=== PATIENT | female | born 1985 | race Caucasian/White ===

== ENCOUNTER 2017-02-07 18:28 | Emergency (ER) | payer OTHER ==
[~2017-02-07 18:28] MED LIST: CLX20 PO
[2017-02-07 18:31] VITALS: TEMP 36.7; Ht 177.8 cm
[2017-02-07] MEDS ORDERED: PEDI-49 PO (18:53)
[2017-02-07] MEDS ORDERED: CITA10TA4 PO (18:53)
[2017-02-07] MEDS ORDERED: ASCO500C43 PO (18:53)
[2017-02-07] MEDS ORDERED: IBUPROFEN 800 MG TAB PO STA (18:57)
--- NOTE | 2017-02-07 20:19 | DIAGNOSTIC IMAGING REPORT ---
LEFT ANKLE 3 VIEWS HISTORY: Left ankle pain, swelling, eval fracture/dislocation COMPARISON: None. FINDINGS: Tiny avulsion fracture at the tip of the lateral malleolus. This is slightly distracted. The distal tibia is intact. No dislocation. Lateral soft tissue swelling. No radiopaque foreign bodies. IMPRESSION: Tiny avulsion fracture at the tip of the lateral malleolus. Electronically signed by: Christopher Richards M.D. 02/07/2017 8:17 PM Dictated Date/Time: 02/07/2017 8:16 PM
--- NOTE | 2017-02-07 20:31 | EMERGENCY ROOM VISIT NOTE ---
ED Visit Note First contact with patient: 18:43 CHIEF COMPLAINT: Ankle pain HISTORY OF PRESENT ILLNESS: This 31-year-old female patient presents to the emergency department with her family member after sustaining an injury to the left ankle and foot with a twisting, inversion motion around 6 PM today. Patient states she was walking on a gravel road, stepped into a hole and twisted her ankle. She had immediate pain and swelling in the ankle, and has been unable to bear any weight since the injury. The patient complains of pain along the outside of the ankle. The patient has no pain of the foot. The patient rates the pain as throbbing and 8/10. The patient is not able to bear weight on the foot. Constant pain, worse with movement, weight bearing, and the dependent position. No knee pain, the patient is able to move their toes. No numbness or weakness of the foot, no laceration. The patient has not had a previous fracture to this ankle. The patient has taken nothing for the pain. The patient denies any other injury. REVIEW OF SYSTEMS: A 6 system review of systems was completed with positives and pertinent negatives listed in the HPI. ALLERGIES: Amoxicillin, shellfish MEDICATIONS: Celexa PMH: Anxiety SOCIAL HISTORY: She is a schoolteacher. Denies tobacco, alcohol, recreational drugs. PHYSICAL EXAM: Vital Signs: Reviewed Nurse's notes, vital signs stable. GENERAL : Alert and pleasant, no acute distress, but appears in pain, well-developed, well-nourished. MENTAL STATUS: Alert, oriented to person place and time, and cooperative. MUSCULOSKELETAL: The left ankle is moderately swollen and tender over the lateral malleolus, but the skin is intact. Unable to assess for ligamentous instability due to patient's extreme pain with any attempts to range the ankle. There is no fifth metatarsal tenderness. There is no tenderness over the rest of the foot. There is no calf or tibia/fibular tenderness. There is no visual deformity. The foot and toes are warm and well- perfused. Dorsalis pedis pulse 2+. Sensation to pain and light touch is intact. Capillary refill less than 2 seconds. IMAGING: LEFT ANKLE 3 VIEWS HISTORY: Left ankle pain, swelling, eval fracture/dislocation COMPARISON: None. FINDINGS: Tiny avulsion fracture at the tip of the lateral malleolus. This is slightly distracted. The distal tibia is intact. No dislocation. Lateral soft tissue swelling. No radiopaque foreign bodies. IMPRESSION: Tiny avulsion fracture at the tip of the lateral malleolus. EMERGENCY DEPARTMENT COURSE: I examined the patient. Differential diagnosis includes ankle sprain, strain, contusion, fracture, dislocation. X-rays of the left ankle were reviewed by myself and read by radiology and reveal a small avulsion fracture at the base of the lateral malleolus with moderate lateral soft tissue swelling. I suspect ligamentous injury. Posterior and stirrup Ortho-Glass splint was applied to the ankle under my direction and the position was satisfactory. Neurovascular status was rechecked and intact. The patient was instructed on the use of crutches. The patient was discharged home in good condition. Current/Historical Medications Scheduled Ascorbic Acid (Vitamin C 500 mg), 1 TAB PO DAILY Citalopram Hydrobromide (Citalopram Hydrobromide), 1 TAB PO DAILY Pediatric Multiple Vitamin W/ (Childrens Gummies), 1 TAB PO DAILY Allergies Coded Allergies: Amoxicillin (Verified Allergy, Intermediate, RASH, 02/23/12) SHELLFISH (Verified Adverse Reaction, Mild, NAUSEA AND VOMITING, 02/23/12) Vital Signs Date Time Temp Pulse Resp B/P Pulse Ox O2 Delivery O2 Flow Rate FiO2 02/07/17 21:44 89 16 148/97 98 02/07/17 18:31 36.7 86 18 161/97 98 Room Air Medications Administered Medications (Trade) Dose Ordered Sig/Jo Route Start Time Stop Time Status Last Admin Dose Admin Ibuprofen (Motrin Tab) 800 mg NOW STAT PO 02/07/17 18:57 02/07/17 19:00 DC 02/07/17 19:40 800 MG Acetaminophen/ Hydrocodone Bitart (Chaplin 5/325 Tab) 1 tab NOW STAT PO 02/07/17 20:38 02/07/17 20:39 DC 02/07/17 20:50 1 TAB Acetaminophen/ Hydrocodone Bitart (Chaplin 5/325mg Home Pack) 1 homepack UD ONCE PO 02/07/17 20:45 02/07/17 20:46 DC 02/07/17 21:42 1 HOMEPACK Departure Information Impression Primary Impression: Moderate left ankle sprain Additional Impression: Avulsion fracture of lateral malleolus of left fibula Dispostion Home / Self-Care Condition GOOD Referrals Vivi Latham M.D. (PCP) [facility] Patient Instructions Ankle Sprain, My [facility] Additional Instructions Ice and elevation for 2-3 days, use crutches to avoid all weight bearing on your left leg. Keep the splint clean and dry, do not get the splint wet. Ibuprofen, 800 mg and Tylenol 1000 mg every 8 hours if needed for pain. You may take the Chaplin as needed for severe pain. Take as prescribed, one to 2 tablets every 6 hours as needed for severe pain. This medication is a narcotic , do not drive, drink alcohol, or operate machinery while you are taking it. Call the orthopedic surgeon's office tomorrow to set up a follow-up appointment in the next week. You may follow-up with your PCP as needed. Please return to the ER for severe worsening pain that is not treated with medications, numbness or discoloration of your toes, or any other concerns. Work Instructions Return To Work: 2 days Additional Work Instructions: No weightbearing on the left leg until cleared by orthopedics. Problem Qualifiers Primary Impression: Moderate left ankle sprain Encounter type: initial encounter Qualified Codes: S93.402A - Sprain of unspecified ligament of left ankle, initial encounter Additional Impression: Avulsion fracture of lateral malleolus of left fibula Encounter type: initial encounter Fracture type: closed Qualified Codes: S82.62XA - Displaced fracture of lateral malleolus of left fibula, initial encounter for closed fracture
[2017-02-07] MEDS ORDERED: HYDROCODONE/ACETAMOPHEN 5/325MG TAB PO STA (20:38)
[2017-02-07] MEDS ORDERED: NORCO 5/325MG HOME PACK PO ONE (20:45)
[2017-02-07 21:44] VITALS: BP 148/97; PULSE 89; O2SAT 98
== END 2017-02-07 21:47 | disposition home or self-care (01) ==
LOC: C.EDB 18:29 → C.EDD 21:47
DX: S82.62XA Displaced fracture of lateral malleolus of left fibula, initial encounter for closed fracture (principal); X58.XXXA Exposure to other specified factors, initial encounter; F41.9 Anxiety disorder, unspecified; Z88.1 Allergy status to other antibiotic agents; Z91.018 Allergy to other foods; Z79.899 Other long term (current) drug therapy

== ENCOUNTER 2018-02-13 06:46 | Emergency (ER) | payer OTHER ==
[~2018-02-13 06:46] MED LIST changes: +ASCO500C43 PO; +CITA10TA4 PO; -CLX20 PO; +PEDI-49 PO
[2018-02-13 06:55] VITALS: TEMP 36.7
[2018-02-13] MEDS ORDERED: MoRPHine SULFATE 4 MG/ML 1 ML CARP\\VIAL IM ONE (07:15)
[2018-02-13] MEDS ORDERED: CYCLOBENZAPRINE HCL 10 MG TAB PO STA (08:15)
[2018-02-13] MEDS ORDERED: CYCL10TA6 PO (08:18)
[2018-02-13 08:38] VITALS: BP 140/84; PULSE 83; O2SAT 97
--- NOTE | 2018-02-13 16:35 | EMERGENCY ROOM VISIT NOTE ---
History First contact with patient: 07:06 Chief Complaint: BACK PAIN Stated Complaint: BACK SPASMS History of Present Illness The patient is a 32 year old white female who presents to the Emergency Room with complaints of left-sided flank pain that began around 4:30 AM today. She states it woke her from sleep. No prior history of similar discomfort. She denies any trauma to the area. She denies lifting, pushing, or pulling anything unusual over the last 2 days. She denies doing any excessive climbing. She is no hematuria. No difficulty with bowel or bladder function. No prior history of similar discomfort. There is no radiating pain into the legs. It stays primarily in her left leg. No prior history of kidney stones. No family history of kidney stones. She did take ibuprofen this morning around 5:30 AM without relief. Her accompanies her today. Review of Systems REVIEW OF SYSTEM: HEENT: No dizziness, visual problems, hearing loss, or tinnitus. There is no difficulty swallowing and no oral lesions are present. PULMONARY: No cough, shortness of breath, sputum production or hemoptysis. CARDIOVASCULAR: No chest pain, palpitations, shortness of breath or peripheral edema. GASTROINTESTINAL: No diarrhea, constipation, nausea, vomiting, or abdominal pain. GENITOURINARY: No dysuria, frequency, urgency or nocturia. NEUROLOGIC: No weakness, muscle tenderness, epilepsy or history of neurological problems. MUSCULOSKELETAL: No history of joint tenderness/swelling. No history of arthritis or arthralgias. SKIN: No rashes or lesions. PSYCHIATRIC: No history of depression or mental illness. ENDOCRINE: No history of diabetes, thyroid disorders, or abnormal hair growth. Past Medical/Surgical History Previous surgeries: [place] tooth extraction Medical history: Significant for asthma Family History Significant for diabetes, heart disease, and hypertension. Parents are living. Social History Smoking Status: Never Smoker Smokeless Tobacco Use: No Alcohol Use: occasionally Drug Use: none Marital Status: Housing Status: lives with family Occupation Status: employed Current/Historical Medications Scheduled PRN Cyclobenzaprine Hcl (Flexeril), 10 MG PO TID PRN for Pain Physical Exam Vital Signs Date Time Temp Pulse Resp B/P (MAP) Pulse Ox O2 Delivery O2 Flow Rate FiO2 02/13/18 08:38 83 20 140/84 97 Room Air 02/13/18 06:55 36.7 90 16 166/72 98 Room Air Physical Exam General: Well-developed, well-nourished, young white female, in no acute distress. Obvious discomfort. Sitting on the bed. Alert and oriented. Skin: Warm and dry with good turgor. No rashes or lesions. No ecchymosis or erythema. The patient is not diaphoretic. No abrasions. Musculoskeletal: Patient has focal discomfort with palpation over the left paraspinal musculature. It is over the kidney. Positive left CVA tenderness with percussion. No pain with palpation over the vertebral bodies, disc spaces , or right paraspinal musculature. No pain with palpation over the SI joint, sacrum, or lateral ribs. No increase in pain with Kernig/Brudzinski testing. She is able to perform a straight leg raise bilaterally. Neurologic: Gross sensation is intact across both lower extremities by soft touch. DTRs are 2+ at the knees. Medical Decision & Procedures Laboratory Results Test 02/13/18 07:20 Urine Color YELLOW Urine Appearance CLEAR (CLEAR) Urine pH 5.5 (4.5-7.5) Urine Specific [place] 1.031 (1.000-1.030) Urine Protein NEG (NEG) Urine Glucose (UA) NEG (NEG) Urine Ketones NEG (NEG) Urine Occult Blood NEG (NEG) Urine Nitrite NEG (NEG) Urine Bilirubin NEG (NEG) Urine Urobilinogen NEG (NEG) Urine Leukocyte Esterase SMALL (NEG) Urine WBC (Auto) 5-10 /hpf (0-5) Urine RBC (Auto) 0-4 /hpf (0-4) Urine Hyaline Casts (Auto) 1-5 /lpf (0-5) Urine Epithelial Cells (Auto) >30 /lpf (0-5) Urine Bacteria (Auto) NEG (NEG) Urine Test NEG (NEG) Urine obtained today is negative. UA obtained today shows small leukocytes with greater than 30 epithelials. No red cells or occult blood. Medications Administered Medications (Trade) Dose Ordered Sig/Jo Route Start Time Stop Time Status Last Admin Dose Admin Morphine Sulfate (MoRPHine SULFATE INJ) 4 mg ONE ONCE IM 02/13/18 07:15 02/13/18 07:17 DC 02/13/18 07:28 4 MG Cyclobenzaprine HCl (Flexeril Tab) 10 mg NOW STAT PO 02/13/18 08:15 5/20/18 08:16 DC 02/13/18 08:37 10 MG Morphine 4 mg IM morphine 4 mg IM, Flexeril 10 mg p.o. ED Course Patient was educated regarding today's findings. Conservative care measures were discussed. She was given morphine 4 mg IM with minimal improvement. She was given a tablet of Flexeril 10 mg p.o. Additional prescription was provided to be used every 8 hours as needed for severe pain/spasm. Driving and sedation precautions were given. Gentle stretching daily. Ice intermittently to the low back 3 days, then use moist heat. Follow-up with her PCP this week. Return to the ED for any acute worsening of symptoms. Medical Decision Possibility of muscle strain, nerve root impingement, radiculopathy, renal stone , ureteral stone, UTI, nephritis, and were considered among others. Medication Reconcilliation Current Medication List: was personally reviewed by nm Blood Pressure Screening Patient's blood pressure: Normal blood pressure Impression Primary Impression: Strain of lumbar region Additional Impression: Acute left flank pain Departure Information Prescriptions Cyclobenzaprine Hcl (FLEXERIL) 10 Mg Tab 10 MG PO TID Y for Pain, #15 TAB Prov: Evangelist Stout,P.A. 02/13/18 Referrals No Doctor, Assigned (PCP) Patient Instructions My [facility] Problem Qualifiers Primary Impression: Strain of lumbar region Encounter type: initial encounter Qualified Codes: S39.012A - Strain of muscle, fascia and tendon of lower back, initial encounter
== END 2018-02-13 08:42 | disposition home or self-care (01) ==
LOC: C.EDB 06:47 → C.EDA 08:42
DX: S33.5XXA Sprain of ligaments of lumbar spine, initial encounter (principal); X58.XXXA Exposure to other specified factors, initial encounter; R10.9 Unspecified abdominal pain